=== PATIENT | male | born 1990 | race African-American/Black ===

== ENCOUNTER 2022-06-24 15:10 | Emergency (ER) | payer SELFPAY | END 2022-06-24 17:31 | disposition home or self-care (01) | LOC: MW.ED 15:10 | DX: S06.0X1A Concussion with loss of consciousness of 30 minutes or less, initial encounter (principal); S80.01XA Contusion of right knee, initial encounter; S70.11XA Contusion of right thigh, initial encounter; E11.9 Type 2 diabetes mellitus without complications; I10 Essential (primary) hypertension; F17.210 Nicotine dependence, cigarettes, uncomplicated; W22.8XXA Striking against or struck by other objects, initial encounter | CPT/HCPCS: 70450; 70450-26; 70486; 70486-26; 73562-26-RT; 73562-RT; 99284 ==

== ENCOUNTER 2022-08-25 17:18 | Observation (INO) | payer SELFPAY ==
[2022-08-25] MEDS ORDERED: Ondansetron 4 MG/2 ML SDV IVPUSH ONE (17:36)
[2022-08-25] MEDS ORDERED: Morphine 4 MG/ML Syringe IVPUSH ONE (17:36)
[2022-08-25] MEDS ORDERED: Sodium Chloride 0.9% 1,000 ML IV ONE ×3 (17:36→18:56)
[2022-08-25] MEDS ORDERED: Famotidine 20 MG/2 ML SDV IVPUSH ONE (17:40)
[2022-08-25 18:33] LABS: CORONAVIRUS COVID-19 NAA NEGATIVE (NEGATIVE); INFLUENZA A NAA NEGATIVE (NEGATIVE); INFLUENZA B NAA NEGATIVE (NEGATIVE)
[2022-08-25 19:13] LABS: CARBON DIOXIDE,CO2 28.4 mmol/L (21.0-32.0); POTASSIUM,K 3.7 mmol/L (3.5-5.1)
[2022-08-25] MEDS ORDERED: Magnesium Sulfate/Water 2 GM in Premix Bag 1 BAG IV ONE ×2 (19:37→22:30)
[2022-08-25] MEDS ORDERED: Insulin Regular, Human 100 Units/ML 10 ML Vial IVPUSH ONE (20:43)
[2022-08-25] MEDS ORDERED: 50% Dextrose in Water 50 ML Syringe IVPUSH PRN ×2 (20:43→22:13)
[2022-08-25] MEDS ORDERED: Glucagon,Human Recombinant 1 MG Vial IM PRN ×2 (20:43→22:13)
[2022-08-25] MEDS ORDERED: Insulin Regular, Human 100 Units/ML 10 ML Vial SUBCUT ONE (22:13)
[2022-08-25] MEDS ORDERED: Potassium Chloride 20 MEQ Tab.ER PO ONE (22:14)
[2022-08-25] MEDS ORDERED: Magnesium Sulfate/Water 2 GM/50 ML Premix Bag IV ONE (22:14)
[2022-08-26] MEDS: Sodium Chloride 0.9% 1,000 ML IV SCH ×2 (00:11→08:02)
[2022-08-26 00:24] LABS: HEMOGLOBIN A1C 12.8 %
[2022-08-26 06:17] LABS: CARBON DIOXIDE,CO2 29.1 mmol/L (21.0-32.0); POTASSIUM,K 3.7 mmol/L (3.5-5.1)
[2022-08-26] MEDS: Insulin Aspart 100 Units/ML 3 ML Pen SUBCUT SCH ×2 (08:00→12:17)
[2022-08-26] MEDS ORDERED: Insulin Glargine,Hum.Rec.Anlog 100 UNIT/ML 3 ML Pen SUBCUT SCH ×2 (14:30→21:00)
[2022-08-26] MEDS ORDERED: Insulin Aspart 100 Units/ML 3 ML Pen SUBCUT STA (14:31)
== END 2022-08-26 15:50 | disposition home or self-care (01) ==
LOC: MW.ED 17:18 → MW.MS 20:43
PROVIDERS: ADMIT Internal Medicine; ATTEND Internal Medicine
DX: E11.65 Type 2 diabetes mellitus with hyperglycemia (principal); I10 Essential (primary) hypertension; F17.210 Nicotine dependence, cigarettes, uncomplicated; Z79.899 Other long term (current) drug therapy; Z79.84 Long term (current) use of oral hypoglycemic drugs; Z79.4 Long term (current) use of insulin; Z20.822 Contact with and (suspected) exposure to COVID-19
CPT/HCPCS: 0240U; 36415; 71045; 80048; 80053; 81003; 82009; 82803; 82947; 83036; 83605; 83690; 83735; 84484; 85025; 93005; 96361; 96365; 96366; 96375; 99285; A9270; G0378; J1815; J2270; J2405; J3475; J3490; J7030; 99221; 99238

== ENCOUNTER 2022-08-28 17:08 | Emergency (ER) | payer SELFPAY ==
[2022-08-28] MEDS ORDERED: Morphine 4 MG/ML Syringe IVPUSH ONE (17:16)
[2022-08-28] MEDS ORDERED: Ondansetron 4 MG/2 ML SDV IVPUSH ONE (17:16)
[2022-08-28] MEDS ORDERED: Sodium Chloride 0.9% 1,000 ML IV ONE (17:16)
[2022-08-28 18:21] LABS: CARBON DIOXIDE,CO2 27.5 mmol/L (21.0-32.0); POTASSIUM,K 3.2 mmol/L (3.5-5.1)
== END 2022-08-28 18:44 | disposition home or self-care (01) ==
LOC: MW.ED 17:08
DX: R51.9 Headache, unspecified (principal); M54.9 Dorsalgia, unspecified; I10 Essential (primary) hypertension; E11.9 Type 2 diabetes mellitus without complications; Z79.4 Long term (current) use of insulin; Z79.899 Other long term (current) drug therapy
CPT/HCPCS: 36415; 74176; 80053; 83690; 83735; 85025; 96361; 96374; 96375; 99285; J2270; J2405; J7030